=== PATIENT | male | born 1945 | race Caucasian/White ===

== ENCOUNTER 2021-12-04 08:03 | Outpatient (CLI) | payer OTHER ==
[~2021-12-04 08:03] MED LIST: LEVAQUIN750 MG PO
== END 2021-12-04 08:09 | disposition home or self-care (01) ==
LOC: NUCLEAR 08:03
PROVIDERS: ATTEND Family Medicine
DX: I87.2 Venous insufficiency (chronic) (peripheral) (principal)

== ENCOUNTER → 2021-12-14 | Outpatient (CLI) | payer OTHER | END | disposition home or self-care (01) | LOC: NUCLEAR 12-05 08:00 | PROVIDERS: ATTEND Family Medicine | DX: I87.2 Venous insufficiency (chronic) (peripheral) (principal); I72.0 Aneurysm of carotid artery ==

== ENCOUNTER 2023-08-28 08:41 | Outpatient (CLI) | payer OTHER | END 2023-08-28 08:43 | disposition home or self-care (01) | LOC: RAD 08:41 | DX: R06.2 Wheezing (principal) ==

== ENCOUNTER 2023-09-23 08:18 | Outpatient (CLI) | payer OTHER | END 2023-09-23 08:20 | disposition home or self-care (01) | LOC: NUCLEAR 08:18 | PROVIDERS: ATTEND Family Medicine | DX: I70.223 Atherosclerosis of native arteries of extremities with rest pain, bilateral legs (principal); I70.203 Unspecified atherosclerosis of native arteries of extremities, bilateral legs ==

== ENCOUNTER 2023-09-24 07:59 | Outpatient (CLI) | payer OTHER | END 2023-09-24 08:00 | disposition home or self-care (01) | LOC: NUCLEAR 07:59 | PROVIDERS: ATTEND Family Medicine | DX: I87.2 Venous insufficiency (chronic) (peripheral) (principal); I70.223 Atherosclerosis of native arteries of extremities with rest pain, bilateral legs ==

== ENCOUNTER → 2024-03-03 | Day surgery (SDC) | payer OTHER ==
[2024-02-26 08:28] LABS: HEMATOCRIT 48.2 % (39.0-48.0); HEMOGLOBIN 16.4 g/dL (13-16.00); MEAN CELL VOLUME 94.2 fL (80.0-100.00); MEAN CORPUSCULAR HEMOGLOBIN 32.1 pg (27.00-32.0); MEAN CORPUSCULAR HGB CONC 34.1 g/dl (32.0-36.0); PLATELET COUNT 174 K/uL (150-450); RED BLOOD COUNT 5.11 M/uL (4.00-6.00); RED CELL DISTRIBUTION WIDTH 13.9 % (11.5-14.5)
[2024-02-26 08:30] LABS: URINE APPEARANCE Clear; URINE BILIRRUBIN Negative (NEGATIVE); URINE BLOOD Moderate; URINE COLOR Dark Yellow; URINE GLUCOSE Negative (NEGATIVE); URINE KETONE Trace (NEGATIVE); URINE LEUKOCYTE Trace; URINE NITRATE Negative; URINE PROTEIN Negative (NEGATIVE)
[2024-02-26 08:34] LABS: URINE BACTERIA 17.6 uL (0.0-1933); URINE EPITHELIAL CELLS 9.2 uL (0.0-38.8); URINE RBC 66.1 uL (0.0-20.8); URINE WBC 13.1 uL (0.0-23.2)
[2024-02-26 08:49] LABS: INR 1.03; PARTIAL THROMBOPLASTIN TIME 32.5 SECONDS (22.0-34.0); PROTHROMBIN TIME 10.8 SECONDS (9.0-11.5)
[2024-02-26 09:21] LABS: ALBUMIN 3.9 gm/dL (3.4-5.0); BILIRUBIN TOTAL 0.61 mg/dL (0.3-1.2); BILIRUBIN,CONJUGATED 0.16 mg/dL (0.0-0.2); BILIRUBIN,UNCONJUGATED 0.45 mg/dL (0.0-0.6); CALCIUM 9.1 mg/dL (8.5-10.1); CREATININE SERUM 0.84 mg/dL (0.70-1.30); GFR 88.84; POTASSIUM 4.44 mEq/L (3.5-5.1); TOTAL PROTEIN 7.2 gm/dL (6.4-8.2)
[~2024-03-03] MED LIST changes: +BUPIVACAINE HCL/MPF 0.5% 30ML VIAL ONE; +CEFTRIAXONE SODIUM 2,000 MG VIAL ONE; +CELEBREX200MG PO; +ENOXAPARIN SODIUM 40 MG/0.4 ML SYRINGE SUBCUTANEO ONE; +METRONIDAZOLE/SODIUM CHLORIDE 500 MG/100 ML PIGGYBACK IV ONE; +NEURONTIN300 MG PO; +PERCOCET 5-3251 EACH PO; +POLY119PG PO; +SUGAMMADEX SODIUM 200 MG/2 ML VIAL IV ONE
== END | disposition home or self-care (01) ==
LOC: ADM 02-26 07:15 → CIR.AMB 07:15
PROVIDERS: ATTEND Surgery
DX: K40.90 Unilateral inguinal hernia, without obstruction or gangrene, not specified as recurrent (principal); E78.00 Pure hypercholesterolemia, unspecified
CPT/HCPCS: 49650; C1781

== ENCOUNTER 2024-08-02 09:47 | Outpatient (CLI) | payer OTHER ==
[~2024-08-02 09:47] MED LIST changes: -BUPIVACAINE HCL/MPF 0.5% 30ML VIAL ONE; -CEFTRIAXONE SODIUM 2,000 MG VIAL ONE; -ENOXAPARIN SODIUM 40 MG/0.4 ML SYRINGE SUBCUTANEO ONE; -METRONIDAZOLE/SODIUM CHLORIDE 500 MG/100 ML PIGGYBACK IV ONE; -SUGAMMADEX SODIUM 200 MG/2 ML VIAL IV ONE
[2024-08-02 10:54] LABS: CREATININE SERUM 1.13 mg/dL (0.70-1.30)
== END 2024-08-02 09:49 | disposition home or self-care (01) ==
LOC: LAB 09:47
PROVIDERS: ATTEND Family Medicine
DX: R19.00 Intra-abdominal and pelvic swelling, mass and lump, unspecified site (principal)

== ENCOUNTER 2024-08-06 08:06 | Outpatient (CLI) | payer OTHER | END 2024-08-06 08:08 | disposition home or self-care (01) | LOC: TOM 08:06 | PROVIDERS: ATTEND Family Medicine | DX: R19.00 Intra-abdominal and pelvic swelling, mass and lump, unspecified site (principal) | CPT/HCPCS: 74178; Q9965 ==